=== PATIENT | female | born 1975 | race Caucasian/White ===

== ENCOUNTER 2021-11-26 13:45 | Emergency (ER) | payer OTHER | END 2021-11-26 13:51 | LOC: JVIRT 13:45 | DX: Z20.822 Contact with and (suspected) exposure to COVID-19 (principal); Z11.52 Encounter for screening for COVID-19 | CPT/HCPCS: C9803-CS; Q3014-GT; U0003; U0005 ==

== ENCOUNTER 2023-07-03 10:56 | Emergency (ER) | payer OTHER ==
[2023-07-03 11:07] VITALS: BP 136/96; PULSE 90; RESP 18; TEMP 99.1; BMI 23.3
== END 2023-07-03 11:33 | disposition home or self-care (01) ==
LOC: FER 10:56
DX: H92.01 Otalgia, right ear (principal); R05.9 Cough, unspecified; J09.X2 Influenza due to identified novel influenza A virus with other respiratory manifestations; R50.9 Fever, unspecified; R51.9 Headache, unspecified; G43.909 Migraine, unspecified, not intractable, without status migrainosus; Z20.822 Contact with and (suspected) exposure to COVID-19
CPT/HCPCS: 0241U-QW; 99283-25